=== PATIENT | male | born 1955 | race Caucasian/White ===

== ENCOUNTER 2018-12-31 21:48 | Emergency (ER) | payer SELFPAY ==
--- NOTE | 2018-12-31 22:06 | EDM.PDOC ---
ED HPI GENERAL MEDICAL PROBLEM - General Chief Complaint: Neuro Symptoms/Deficits Stated Complaint: RIGHT SIDE NUMBNES IN ARM AND LEG Time Seen by Provider: 12/31/18 21:53 Source of Information: Reports: Patient, Family History Limitations: Reports: No Limitations - History of Present Illness INITIAL COMMENTS - FREE TEXT/NARRATIVE: This is a 63-year-old male. Tonight while he was driving to visit his son about 1.5 hours ago he noted that his right arm became somewhat clumsy and didn't seem to do what he wanted to do. When he got to his son's house and got out of the truck he noted that he was dragging his right leg though it wasn't completely paralyzed. The son brought him here to the ER for evaluation. When he arrived he was moving all 4 extremities. He complained of some numbness in his arms and legs but now he says there is no numbness. He does not appear to be in great distress. He has no facial drooping and no pronator drift. He is able to hold his right leg up appropriately without noted weakness. He has no history of CVA in the past. He does have a history of hypertension, obesity, hypercholesterolemia and smoking. No cardiac history. His blood sugar in the ER was 131. - Related Data Allergies Allergy/AdvReac Type Severity Reaction Status Date / Time Penicillins Allergy Cannot Verified 12/31/18 22:00 Remember Home Meds: Home Meds Irbesartan 300 mg PO DAILY 12/31/18 [History] atorvaSTATin [Lipitor] 20 mg PO DAILY 12/31/18 [History] ED ROS GENERAL - Review of Systems Review Of Systems: See Below Constitutional: Denies: Fever, Chills HEENT: Reports: No Symptoms Respiratory: Denies: Shortness of Breath, Cough Cardiovascular: Denies: Chest Pain GI/Abdominal: Reports: No Symptoms : Reports: No Symptoms Musculoskeletal: Reports: Other (As per history of present illness) Skin: Reports: No Symptoms Neurological: Reports: Other (As per history of present illness) Psychiatric: Reports: No Symptoms Hematologic/Lymphatic: Reports: No Symptoms ED EXAM, NEURO - Physical Exam Exam: See Below Exam Limited By: No Limitations General Appearance: Alert, WD/WN, No Apparent Distress Eye Exam: Bilateral Eye: Normal Inspection, Other (He has no facial drooping) Ears: Normal External Exam, Normal Canal, Normal TMs Nose: Normal Inspection Throat/Mouth: Normal Inspection, Normal Lips, Normal Voice, No Airway Compromise , Other (No slurred speech) Head Exam: Normocephalic Neck: Supple Respiratory/Chest: No Respiratory Distress, Lungs Clear, Normal Breath Sounds Cardiovascular: Regular Rate, Rhythm, No Murmur, Bradycardia, Other (Does have a faint 1/6 systolic ejection murmur noted, seems to translate into the carotids ) GI/Abdominal: Soft, Non-Tender Neurological: Alert, Normal Mood/Affect, CN II-XII Intact, Oriented x 3, Other ( He is able to do finger to nose and straight leg raising and negative pronator drift now but he says he is much better than he was prior to coming to the ER, NIH score initially was 0) Back Exam: Normal Inspection Extremities: Normal Inspection, Normal Range of Motion, Other (As above) Psychiatric: Normal Affect, Normal Mood Skin Exam: Warm, Dry EKG INTERPRETATION EKG Date: 12/31/18 Time: 22:05 EKG Interpretation Comments: EKG shows a sinus bradycardia rate of 53 he does not appear to have any acute ST or T-wave changes or elevation and there is no ischemia noted. Course - Vital Signs Last Recorded V/S: Last Vital Signs Temp 96.8 F 12/31/18 21:54 Pulse 57 L 12/31/18 21:54 Resp 15 12/31/18 21:54 BP 209/73 H 12/31/18 21:54 Pulse Ox 97 12/31/18 21:54 - Orders/Labs/Meds Orders: Active Orders 24 hr Category Date Time Status EKG 12 Lead [EKG Documentation Completion] [RC] STAT Care 12/31/18 22:00 Active Head wo Cont [CT] Stat Exams 12/31/18 22:00 Taken Labs: Laboratory Tests 12/31/18 12/31/18 12/31/18 Range/Units 21:57 21:58 21:58 WBC 10.58 H (4.23-9.07) K/mm3 RBC 5.97 (4.63-6.08) M/mm3 Hgb 14.6 (13.7-17.5) gm/L Hct 45.5 (40.1-51.0) % MCV 76.2 L (79.0-92.2) fl MCH 24.5 L (25.7-32.2) pg MCHC 32.1 L (32.2-35.5) g/dl RDW Std Deviation 44.6 H (35.1-43.9) fL Plt Count 252 (163-337) K/mm3 MPV 10.5 (9.4-12.3) fl Neut % (Auto) 49.2 (34.0-67.9) % Lymph % (Auto) 37.0 (21.8-53.1) % [place] % (Auto) 9.1 (5.3-12.2) % Eos % (Auto) 3.9 (0.8-7.0) Baso % (Auto) 0.6 (0.1-1.2) % Neut # (Auto) 5.22 (1.78-5.38) K/mm3 Lymph # (Auto) 3.91 H (1.32-3.57) K/mm3 [place] # (Auto) 0.96 H (0.30-0.82) K/mm3 Eos # (Auto) 0.41 (0.04-0.54) K/mm3 Baso # (Auto) 0.06 (0.01-0.08) K/mm3 PT 10.3 (9.5-12.1) SECONDS INR 0.94 Sodium (136-145) mEq/L Potassium (3.5-5.1) mEq/L Chloride (98-107) mEq/L Carbon Dioxide (21-32) mEq/L Anion Gap (5-15) BUN (7-18) mg/dL Creatinine (0.7-1.3) mg/dL Est Cr Clr Drug Dosing mL/min Estimated GFR (MDRD) (>60) mL/min BUN/Creatinine Ratio (14-18) Glucose (80-115) mg/dL POC Glucose 131 H (80-115) mg/dL Calcium (8.5-10.1) mg/dL Total Bilirubin (0.2-1.0) mg/dL AST (15-37) U/L ALT (16-63) U/L Alkaline Phosphatase (46-116) U/L Troponin I (0.00-0.056) ng/mL Total Protein (6.4-8.2) g/dl Albumin (3.4-5.0) g/dl Globulin gm/dL Albumin/Globulin Ratio (1-2) // Range/Units 21:58 WBC (4.23-9.07) K/mm3 RBC (4.63-6.08) M/mm3 Hgb (13.7-17.5) gm/L Hct (40.1-51.0) % MCV (79.0-92.2) fl MCH (25.7-32.2) pg MCHC (32.2-35.5) g/dl RDW Std Deviation (35.1-43.9) fL Plt Count (163-337) K/mm3 MPV (9.4-12.3) fl Neut % (Auto) (34.0-67.9) % Lymph % (Auto) (21.8-53.1) % [place] % (Auto) (5.3-12.2) % Eos % (Auto) (0.8-7.0) Baso % (Auto) (0.1-1.2) % Neut # (Auto) (1.78-5.38) K/mm3 Lymph # (Auto) (1.32-3.57) K/mm3 [place] # (Auto) (0.30-0.82) K/mm3 Eos # (Auto) (0.04-0.54) K/mm3 Baso # (Auto) (0.01-0.08) K/mm3 PT (9.5-12.1) SECONDS INR Sodium 142 (136-145) mEq/L Potassium 3.9 (3.5-5.1) mEq/L Chloride 107 (98-107) mEq/L Carbon Dioxide 23 (21-32) mEq/L Anion Gap 15.9 H (5-15) BUN 20 H (7-18) mg/dL Creatinine 1.7 H (0.7-1.3) mg/dL Est Cr Clr Drug Dosing 47.99 mL/min Estimated GFR (MDRD) 41 (>60) mL/min BUN/Creatinine Ratio 11.8 L (14-18) Glucose 143 H (80-115) mg/dL POC Glucose (80-115) mg/dL Calcium 8.9 (8.5-10.1) mg/dL Total Bilirubin 0.2 (0.2-1.0) mg/dL AST 20 (15-37) U/L ALT 27 (16-63) U/L Alkaline Phosphatase 80 (46-116) U/L Troponin I 0.044 (0.00-0.056) ng/mL Total Protein 7.3 (6.4-8.2) g/dl Albumin 3.2 L (3.4-5.0) g/dl Globulin 4.1 gm/dL Albumin/Globulin Ratio 0.8 L (1-2) Meds: Medications Discontinued Medications Generic Name Dose Route Start Last Admin Trade Name Heidi PRN Reason Stop Dose Admin Aspirin 324 mg 12/31/18 22:44 12/31/18 22:49 Aspirin PO 12/31/18 22:45 324 mg ONETIME ONE Administration Hydralazine HCl 10 mg 12/31/18 22:16 12/31/18 22:20 Apresoline IVPUSH 12/31/18 22:17 10 mg ONETIME ONE Administration Labetalol HCl 10 mg 12/31/18 22:12 Normodyne IVPUSH 12/31/18 22:13 ONETIME ONE Protocol - Radiology Interpretation Free Text/Narrative:: CT scan of the head did not show any hemorrhagic stroke and I do not see any ischemic stroke at this time. - Re-Assessments/Exams Free Text/Narrative Re-Assessment/Exam: 12/31/18 22:22 Patient states he is moving better and feeling better. 12/31/18 22:49 Called [facility] in [place] and spoke to Dr. Garza the neurologist. She feels like it's appropriate for him to come to [place] for further workup of the TIA. I also spoke to the emergency room physician to notify them in case he redevelops his symptoms on the way to [place] and also spoke to Dr. Howe, hospitalist, who accepts the patient in transport as a direct admit to [facility] and [place]. Patient still remains stable with no reoccurrence of symptoms of weakness or clumsiness in the right upper and right lower extremity. He is able to sign his name normally and he is right handed. 12/31/18 22:58 Please note that when he first arrived his blood pressure was 209/[address] scan it was 177/70 so we touched him a little bit with 10 of hydralazine dropped to 148/68. We will leave it at this point. He did not give him labetalol since his pulse normally runs in the upper 40s low 50s. 12/31/18 23:11 The patient is remained stable during his stay in the ER and he had no further reoccurrence of his symptoms of right-sided weakness or clumsiness prior to leaving the ER. I did speak to the ambulance crew that if his symptoms change and he developed some neurological changes they're to immediately call the ER at [facility] and go to the ER for further therapy otherwise he'll go to the floor as a direct admit. Departure - Departure Time of Disposition: 22:51 Disposition: DC/Tfer to Acute Hospital 02 Condition: Good Clinical Impression: Transient ischemic attack (TIA), Right sided weakness, Hypercholesterolemia, Obesity (BMI 30-39.9) Hypertension Qualifiers: Hypertension type: essential hypertension Qualified Code(s): I10 - Essential ( primary) hypertension Nicotine dependence Qualifiers: Nicotine product type: cigarettes Substance use status: unspecified nicotine- induced disorder Qualified Code(s): F17.219 - Nicotine dependence, cigarettes, with unspecified nicotine-induced disorders - Discharge Information Referrals: PCP,Not In Area [Primary Care Provider] - ED Communication - ED Communication Date/Time Date: 12/31/18 Time Called: 22:52 - Discussed Case With (1) Discussed Case With (1): Admitting Provider Person/s Notified (1): Dr. Howe (She agrees to accept the patient in transport to [facility]) - My Orders Last 24 Hours: My Active Orders 12/31/18 22:00 EKG 12 Lead [EKG Documentation Completion] [RC] STAT Head wo Cont [CT] Stat - Assessment/Plan Last 24 Hours: My Active Orders 12/31/18 22:00 EKG 12 Lead [EKG Documentation Completion] [RC] STAT Head wo Cont [CT] Stat
[2018-12-31] MEDS ORDERED: Labetalol 100 MG/20 ML MDV IVPUSH ONE (22:12)
[2018-12-31] MEDS ORDERED: hydrALAZINE 20 MG/ML SDV IVPUSH ONE (22:16)
[2018-12-31] MEDS ORDERED: Aspirin 81 MG Tab.Chew PO ONE (22:44)
--- NOTE | 2019-01-02 11:06 | CT ---
Head CT Technique: Multiple axial sections through the brain were obtained. Intravenous contrast was not utilized. Comparison: No previous intracranial imaging. Findings: Ventricles along with basal cisterns and sulci over the convexities are within normal limits for the patient's age. No abnormal parenchymal densities are seen. No evidence of intracranial hemorrhage. No midline shift or mass effect is seen. Bone window settings were reviewed which show no acute calvarial abnormality. Slight mucosal thickening is partially visualized within the left maxillary sinus. No acute paranasal sinus findings are seen. Mastoid sinuses are clear. Impression: 1. Sinus finding believed to be incidental. 2. No acute intracranial abnormality is appreciated. If patient's symptoms warrant further evaluation, MRI could then be considered. Diagnostic code #2 I agree with preliminary report from [facility], finalized on 12/31/18, 11:11 PM Central Time
== END 2018-12-31 23:05 ==
LOC: JD.ED 21:48
DX: G45.9 Transient cerebral ischemic attack, unspecified (principal); E78.00 Pure hypercholesterolemia, unspecified; E66.9 Obesity, unspecified; I10 Essential (primary) hypertension; F17.219 Nicotine dependence, cigarettes, with unspecified nicotine-induced disorders; Z88.0 Allergy status to penicillin; Z79.899 Other long term (current) drug therapy; Z68.35 Body mass index [BMI] 35.0-35.9, adult
CPT/HCPCS: 36415; 70450; 80053; 82962; 84484; 85025; 85610; 93005; 96374; 99285; A9270; J0360; 93010; 99283